=== PATIENT | male | born 1975 | race Caucasian/White ===

== ENCOUNTER 2016-10-12 02:27 | Emergency (ER) | payer BC ==
[~2016-10-12] VITALS: Ht 182.9 cm; Wt 143.2 kg
[2016-10-12 03:24] LABS: ADD MIUA? NO; BILIRUBIN NEGATIVE; BLOOD NEGATIVE; COLOR YELLOW ((YELLOW)); GLUCOSE (STRIP) NEGATIVE; KETONES NEGATIVE; LEUKOCYTES NEGATIVE; NITRITE NEGATIVE; PROTEIN (STRIP) NEGATIVE; SPECIFIC GRAVITY 1.024 (1.000-1.030); UCUL ADDED? NO; UROBILINOGEN 0.2 MG/DL (0.2-1.0)
[2016-10-12 03:37] LABS: EOSINOPHIL (%) 4.6 % (0-5); EOSINOPHIL COUNT 0.4 K/uL (0-0.3); HEMATOCRIT 46.1 % (38.0-50.0); IMMATURE GRANULOCYTE (%) 0.3 % (0.0-0.7); INSTRUMENT ABS NEUTROPHIL CT 4.9 K/uL; LYMPHOCYTE COUNT 1.7 K/uL (1.0-2.8); MCH 27.8 PG (29.0-34.0); MCHC 34.3 G/DL (30.0-36.0); MCV 81.2 FL (86-99); MEAN PLAT.VOLUME 9.8 uM^3 (9.0-12.4); MONOCYTE (%) 7.5 % (3-12); MONOCYTE COUNT 0.6 K/uL (0-0.8); NEUTROPHIL (%) 65.1 % (45-76); NEUTROPHIL COUNT 4.9 K/uL (1.8-6.4); PLATELET COUNT 173 K/uL (156-360); RBC DIS.WIDTH-CV 12.2 % (11.8-14.6); RBC DIS.WIDTH-SD 35.8 % (39-53); RED BLOOD COUNT 5.68 M/uL (4.00-5.50); WHITE BLOOD COUNT 7.6 K/uL (4.1-10.2)
[2016-10-12 03:50] LABS: CHLORIDE 103 mEq/L (99-109); POTASSIUM 3.8 mEq/L (3.7-5.4); SODIUM 138 mEq/L (136-147)
[2016-10-12 03:52] LABS: GLUCOSE 141 mg/dL (70-99)
[2016-10-12 03:53] LABS: ANION GAP 8 MEQ/L (2-14)
[2016-10-12 03:54] LABS: TOTAL BILIRUBIN 1.2 mg/dL (0.0-1.0)
[2016-10-12 03:55] LABS: ALKALINE PHOSPHATASE 96 IU/L (3-129)
[2016-10-12 03:56] LABS: GFR ESTIMATE (CALCULATED) > 59 mL/min/
[2016-10-12 03:57] LABS: UREA NITROGEN (BUN) 17 mg/dL (9-23)
[2016-10-12 03:59] LABS: LIPASE 35 U/L (1.0-51.0)
[2016-10-12] MEDS ORDERED: TRAMADOL HCL50 MG PO (06:06)
[2016-10-12] MEDS ORDERED: ZOFRAN8 MG PO (06:06)
[2016-10-12 06:11] VITALS: BP 132/79
== END 2016-10-12 06:18 | disposition home or self-care (01) ==
LOC: EME 02:27
PROVIDERS: Emergency Medicine
DX: K52.9 Noninfective gastroenteritis and colitis, unspecified (principal)
CPT/HCPCS: 74177; 80053; 81003; 83690; 85025; 99281; 99285; J2405; J3010; J7030

== ENCOUNTER 2017-04-12 21:36 | Observation (INO) | payer BC ==
[~2017-04-12] VITALS: Ht 182.9 cm; Wt 142.5 kg
[~2017-04-12 21:36] MED LIST: TRAMADOL HCL50 MG PO; ZOFRAN8 MG PO
[2017-04-12 22:06] LABS: HEMATOCRIT 45.4 % (38.0-50.0); HEMOGLOBIN 15.6 G/DL (12.5-16.6); MCH 28.1 PG (29.0-34.0); MCHC 34.4 G/DL (30.0-36.0); MCV 81.8 FL (86-99); PLATELET COUNT 175 K/uL (156-360); RBC DIS.WIDTH-CV 12.2 % (11.8-14.6); RBC DIS.WIDTH-SD 36.6 % (39-53); RED BLOOD COUNT 5.55 M/uL (4.00-5.50); WHITE BLOOD COUNT 5.6 K/uL (4.1-10.2)
[2017-04-12 22:17] LABS: CHLORIDE 102 mEq/L (99-109); POTASSIUM 3.9 mEq/L (3.7-5.4); SODIUM 138 mEq/L (136-147)
[2017-04-12 22:19] LABS: GLUCOSE 123 mg/dL (70-99)
[2017-04-12 22:23] LABS: CREATININE 1.2 mg/dL (0.6-1.3); GFR ESTIMATE (CALCULATED) > 59 mL/min/ (58.99-99999)
[2017-04-12 22:24] LABS: UREA NITROGEN (BUN) 12 mg/dL (9-23)
[2017-04-12 22:48] LABS: TROP-I INTERPRETATION NEGATIVE; TROPONIN-I < 0.01 ng/mL (0.0-0.30)
[2017-04-12 23:01] LABS: ALBUMIN 4.4 g/dL (3.2-4.8)
[2017-04-12 23:04] LABS: TOTAL PROTEIN 6.5 g/dL (6.4-8.3)
[2017-04-12 23:07] LABS: ALKALINE PHOSPHATASE 80 IU/L (3-129)
[2017-04-12 23:09] LABS: AST (GOT) 27 IU/L (2-34); DIRECT BILIRUBIN 0.3 mg/dL (0.0-0.3)
[2017-04-12 23:10] LABS: ALT (GPT) 59 IU/L (3-49); LIPASE 33 U/L (1.0-51.0)
[2017-04-12 23:11] LABS: CREATINE KINASE 197 IU/L (1-294)
[2017-04-13 01:38] LABS: D-DIMER ELISA < 150.00 ng/mLDDU (<230)
[2017-04-13 05:55] VITALS: BP 134/86
[2017-04-13 06:00] VITALS: BP 134/86
[2017-04-13 08:00] VITALS: BP 134/78
[2017-04-13 11:33] VITALS: BP 142/72
[2017-04-13 15:46] VITALS: BP 132/78
[2017-04-13 20:08] VITALS: BP 139/67
[2017-04-14 00:09] VITALS: BP 127/73
[2017-04-14 03:56] VITALS: BP 114/61
[2017-04-14 07:07] LABS: HEMATOCRIT 42.8 % (38.0-50.0); HEMOGLOBIN 14.1 G/DL (12.5-16.6); MCH 28.1 PG (29.0-34.0); MCHC 32.9 G/DL (30.0-36.0); MCV 85.4 FL (86-99); PLATELET COUNT 128 K/uL (156-360); RBC DIS.WIDTH-CV 12.8 % (11.8-14.6); RBC DIS.WIDTH-SD 39.8 % (39-53); RED BLOOD COUNT 5.01 M/uL (4.00-5.50); WHITE BLOOD COUNT 3.3 K/uL (4.1-10.2)
[2017-04-14 07:36] LABS: CHLORIDE 104 MEQ/L (99-109); CREATININE 1.1 MG/DL (0.6-1.3); GFR ESTIMATE (CALCULATED) > 59 mL/min/ (58.99-99999); GLUCOSE 134 mg/dL (70-99); SODIUM 141 MEQ/L (136-147); UREA NITROGEN (BUN) 11 mg/dL (9-23)
[2017-04-14 08:11] VITALS: BP 122/76
[2017-04-14] MEDS ORDERED: OSELTAMIVIR PHO75 MG PO (11:24)
[2017-04-14 12:22] VITALS: BP 134/76
== END 2017-04-14 14:18 | disposition home or self-care (01) ==
LOC: EME 21:36 → EDOF 04-13 03:04 → ENRESERV 04-13 03:08 → 3EAST 04-13 05:51
PROVIDERS: Emergency Medicine; Physician Assistant
DX: J10.1 Influenza due to other identified influenza virus with other respiratory manifestations (principal); R00.0 Tachycardia, unspecified
CPT/HCPCS: 71046; 80048; 80076; 82550; 83605; 83690; 84484; 85027; 85379; 87040; 87502; 93005; 94640; 94640 76; 99202; 99281; 99284; G0378; J1650; J1885; J2405; J7030